=== PATIENT | male | born 1995 | race American Indian/Alaskan Native ===

== ENCOUNTER 2017-06-25 17:02 | Emergency (ER) | payer BC ==
[2017-06-25 17:06] VITALS: BP 106/80; PULSE 69; RESP 16; TEMP 97.5; O2SAT 100
[2017-06-25] MEDS ORDERED: Sodium Chloride 0.9% 1,000 ML IV STA (17:14)
--- NOTE | 2017-06-25 17:14 | ED PDOC ---
Lower Extremity Pain/Injury Time Seen by Provider: 06/25/17 17:06 Chief Complaint (Nursing): Lower Extremity Problem/Injury Chief Complaint (Provider): Left ankle pain History Per: Patient History/Exam Limitations: no limitations Onset/Duration Of Symptoms: Hrs Current Symptoms Are (Timing): Still Present Additional Complaint(s): 21 year old male presents to the emergency department with a complaint of left ankle pain status post fall while skateboarding. Patient did not sustain head injury or LOC. Patient has not been able to walk on affected leg. Patient arrives via ambulance. Dr. Dandy Todd MD ([place], [place]) Past Medical History Reviewed: Historical Data, Nursing Documentation, Vital Signs Vital Signs: Last Vital Signs Temp 97.5 F L 06/25/17 17:04 Pulse 69 06/25/17 17:04 Resp 16 06/25/17 17:04 BP 106/80 06/25/17 17:04 Pulse Ox 100 06/25/17 17:04 - Medical History PMH: No Chronic Diseases - Surgical History Surgical History: No Surg Hx - Family History Family History: States: No Known Family Hx - Living Arrangements Living Arrangements: With Family - Social History Current smoker - smoking cessation education provided: No Alcohol: None Drugs: Cannabis - Home Medications Home Medications: Ambulatory Orders Medication Instructions Recorded Acetaminophen with Codeine 1 tab PO Q6 PRN #20 tab 06/25/17 [Tylenol with Codeine No. 3 300 mg-30 mg] Ibuprofen [Motrin Tab] 800 mg PO Q8 PRN #20 tab 06/25/17 - Allergies Allergies/Adverse Reactions: Allergies Allergy/AdvReac Type Severity Reaction Status Date / Time nut - unspecified Allergy SHORTNESS Verified 06/25/17 17:04 OF BREATH Wells Criteria for PE - Wells Criteria for Pulmonary Embolism Clinical Signs and Symptoms of DVT: No P.E is #1 Diagnosis, or Equally Likely: No Heart Rate >100: No Immobilization at least 3 days;Surgery previous 4 weeks: No Previous, objectively diagnosed PE or DVT: No Hemoptysis: No Malignancy w/treatment within 6 months, or palliative: No Total Score: 0 Review of Systems ROS Statement: Except As Marked, All Systems Reviewed And Found Negative (As per HPI, otherwise negative) Musculoskeletal: Positive for: Other (Left ankle pain s/p fall) Neurological: Positive for: Other (no head injury or LOC) Physical Exam - Reviewed Nursing Documentation Reviewed: Yes Vital Signs Reviewed: Yes - Physical Exam Appears: Positive for: Well, Non-toxic, No Acute Distress Head Exam: Positive for: NORMAL INSPECTION Skin: Positive for: Normal Color. Negative for: Rash Eye Exam: Positive for: Normal appearance Extremity: Positive for: Other (Moderate diffuse swelling noted to the left ankle region suspicious for bony deformity, minimal tenderness to left foot, normal distal pulses, normal cap refill ) Neurologic/Psych: Positive for: Alert, Oriented (x3) - ECG O2 Sat by Pulse Oximetry: 100 (RA) Pulse Ox Interpretation: Normal - Other Rad right tib/fib, ankle and foot x-rays X-Ray: Interpreted by Me, Viewed By Me X-Ray Interpretation: displaced oblique fracture to distal fibula Medical Decision Making Medical Decision Making: Time: 1709 Initial Impression: Left ankle injury s/p skateboarding Initial Plan: Toradol 15 mg IVP Sodium Chloride 1L IV Ankle Left x-ray Left foot x-ray Tib FIb Left x-ray Podiatry resident Dr. Covington at bedside, CT of left lower extremity ordered for further evaluation of injury. was applied by Dr. Covington at bedside. As per Dr. Covington, patient can be discharged after CT completed. Patient was instructed to follow up with Dr. Brizuela in his office tomorrow. Prescriptions for Motrin and Tylenol with Codeine provided. Patient given crutches. Patient was instructed on proper use of crutches. He was advised to keep splint in place at all times and to no get splint wet. Scribe Attestation: Documented by Thi Raman, acting as a scribe for Khushi Owusu PA-C. Provider Scribe Attestation: All medical record entries made by the Scribe were at my direction and personally dictated by me. I have reviewed the chart and agree that the record accurately reflects my personal performance of the history, physical exam, medical decision making, and the department course for this patient. I have also personally directed, reviewed, and agree with the discharge instructions and disposition. Disposition - Clinical Impression Clinical Impression: Fracture of distal fibula - Patient ED Disposition Is Patient to be Admitted: No Counseled Patient/Family Regarding: Studies Performed, Diagnosis, Need For Followup, Rx Given - Disposition Referrals: Fabio Brizuela III, MD [Staff Provider] - Disposition: Routine/Home Disposition Time: 20:41 Condition: STABLE Additional Instructions: Ice and elevate affected area. Do not remove splint or get splint wet. Take prescription meds for pain relief as directed as needed. Do not bear any weight on affected leg. Use crutches when walking at all times. Follow-up tomorrow with Dr. Brizuela in his office. Prescriptions: Acetaminophen with Codeine [Tylenol with Codeine No. 3 300 mg-30 mg] 1 tab PO Q6 PRN #20 tab PRN Reason: Pain, Severe (8-10) Ibuprofen [Motrin Tab] 800 mg PO Q8 PRN #20 tab PRN Reason: Pain, Moderate (4-7) Instructions: Ankle Fracture, Cast Care, How to Use Crutches, Going Up and Down Curbs or Stairs With a Walker or Crutches Forms: [employer] ([place]), [facility] ED School/Work Excuse
--- NOTE | 2017-06-25 21:02 | CT ---
EXAM: CT Left Lower Extremity Without Intravenous Contrast, Ankle CLINICAL HISTORY: 21 years old, male; Injury or trauma; Injury Post fall / skateboarding; Initial encounter; Fracture, traumatic; Closed fracture; Ankle; Left; Not specified; Additional info: Left ankle fibula FX, increased medial clear space TECHNIQUE: Axial computed tomography images of the left ankle without intravenous contrast. All CT scans at this facility use one or more dose reduction techniques, viz.: automated exposure control; ma/kV adjustment per patient size (including targeted exams where dose is matched to indication; i.e. head); or iterative reconstruction technique. Coronal and sagittal reformatted images were created and reviewed. COMPARISON: CR - TIBIA FIBULA LEFT 2017-06-25 17:15 FINDINGS: Bones/joints: Oblique fracture distal fibular diaphysis. Posterior displacement of distal fracture fragment. Comminuted avulsion fracture posterior medial aspect of distal tibia. Small ossicle along distal fibula. Mild widening medial gutter of ankle mortise. No dislocation. Minimal joint effusion. Soft tissues: Swelling/stranding/minimal air about ankle. IMPRESSION: 1. Distal tibial and fibular fractures.
--- NOTE | 2017-06-25 21:58 | CP.PCM.CON ---
History of Present Illness - History of Present Illness History of Present Illness: 21 y/o male with no significant PMHx seen in ED for left ankle pain s/p skateboarding injury earlier this evening. States he fell off a ramp and his ankle twisted, at which time he felt a crack. States he did not attempt to walk afterwards and came straight to the ED. Denies any numbness, tingling or burning at this time. Admits to moderate pain on the outside of the ankle scaled as a 7/10, with additional pain on the inside of his ankle scaled 4/10 on the VAS scale. Denies F/C/N/V/CP/SOB PSH: denies All: peanut Social: denies EtOH or cigarette use; admits to marijuana use Review of Systems - Review of Systems All systems: reviewed and no additional remarkable complaints except (per HPI) Past Patient History - Past Social History Alcohol: None Drugs: Cannabis - PSYCHIATRIC Hx Substance Use: No Meds Home Medications: Home Medication List Medication Instructions Recorded Confirmed Type Acetaminophen with Codeine 1 tab PO Q6 PRN #20 tab 06/25/17 Rx [Tylenol with Codeine No. 3 300 mg-30 mg] Ibuprofen [Motrin Tab] 800 mg PO Q8 PRN #20 tab 06/25/17 Rx Allergies/Adverse Reactions: Allergies Allergy/AdvReac Type Severity Reaction Status Date / Time nut - unspecified Allergy SHORTNESS Verified 06/25/17 17:04 OF BREATH Physical Exam - Constitutional Appears: Well, Non-toxic, No Acute Distress - Extremities Exam Additional comments: Left lower extremity focused exam: Vasc: DP/PT pulses palpable 2/4. Temperature gradient warm to cool from proximal to distal. Localized non-pitting perimalleolar edema, medial > lateral. CFT < 3 sec to all digits Derm: No open lesions, no hematoma formation, no fracture blisters, no erythema , no ecchymosis Neuro: Protective sensation grossly intact Ortho: Moderate tenderness elicited upon active and passive ankle joint ROM, dorsiflexion>plantarflexion. Limited STJ inversion and eversion due to guarding. Pt able to dorsiflex actively at ankle joint, limited due to guarding. Pt able to wiggle toes without difficulty - Neurological Exam Neurological exam: Alert, Oriented x3 - Psychiatric Exam Psychiatric exam: Normal Affect, Normal Mood Results - Vital Signs Recent Vital Signs: Last Vital Signs Temp 97.5 F L 06/25/17 17:04 Pulse 69 06/25/17 17:04 Resp 16 06/25/17 17:04 BP 106/80 06/25/17 17:04 Pulse Ox 100 06/25/17 20:57 Assessment & Plan - Assessment and Plan (Free Text) Assessment: 21 y/o male with displaced left oblique distal fibula fracture and increased medial clear space of left ankle joint secondary to trauma Plan: Pt seen and evaluated in ED Discussed plan with attending Dr. Brizuela X-rays of L ankle reveal distal fibula fracture, increased medial clear space Lower ext CT w/o contrast reveals oblique distal fibula fracture with >3mm gapping noted between fracture fragments, increased medial clear space with comminuted distal tibia avulsion fracture Pt placed in posterior splint to LLE and dispensed crutches - to remain NWB at all times Pt is to follow up with Dr. Brizuela in his office tomorrow Pain control as per ED medical team Thank you for this consult
--- NOTE | 2017-06-26 08:55 | RAD ---
PROCEDURE: Left Ankle Radiographs. HISTORY: trauma COMPARISON: None FINDINGS: BONES: Minimally displaced fracture of the distal fibula. JOINTS: Questionable widening of the medial clear space. Talar dome intact SOFT TISSUES: Lateral malleolar soft tissue swelling. Small ankle joint effusion. OTHER FINDINGS: None. IMPRESSION: Minimally displaced fracture of the distal fibula. Questionable widening of the medial clear space.
--- NOTE | 2017-06-26 08:59 | RAD ---
PROCEDURE: Radiographs of the left tibia and fibula. HISTORY: trauma COMPARISON: None available. TECHNIQUE: Frontal and lateral views obtained. FINDINGS: BONES: Minimally displaced fracture of the distal fibula. JOINT SPACES: Widening of the medial clear space. OTHER FINDINGS: Lateral malleolar soft tissue swelling. IMPRESSION: Minimally displaced fracture of the distal fibula. Widening of the medial clear space is most compatible with deltoid ligament injury.
--- NOTE | 2017-06-26 09:00 | RAD ---
PROCEDURE: Left Foot Radiographs. HISTORY: trauma COMPARISON: None. FINDINGS: BONES: Minimally displaced fracture of the distal fibula. JOINTS: Normal. SOFT TISSUES: Lateral malleolar soft tissue swelling. OTHER FINDINGS: None. IMPRESSION: Minimally displaced fracture of the distal fibula.
== END 2017-06-25 21:12 | disposition home or self-care (01) ==
LOC: H.ER 17:02
DX: S82.832A Other fracture of upper and lower end of left fibula, initial encounter for closed fracture (principal); W19.XXXA Unspecified fall, initial encounter; Y93.51 Activity, roller skating (inline) and skateboarding
CPT/HCPCS: 29240; 73590; 73610; 73630; 73700; 96374; 99284; J1885

== ENCOUNTER 2017-06-29 06:28 | Observation (INO) | payer BC ==
[2017-06-29 06:54] VITALS: RESP 18
--- NOTE | 2017-06-29 07:43 | CP.PCM.HP ---
History of Present Illness - History of Present Illness History of Present Illness: Patient is a 21 y/o male with PMH of asthma, who presents to the [facility] ER with complaints of L leg pain and tightness following a short leg splint placement on 06/25/17. The patient suffered a left ankle distal fibula fracture with syndesmosis disruption after a skateboarding injury 4 days ago. The patient was placed in a short leg splint in the ER and was not admitted, but discharged NWB with crutches. Over the next few days, the patient experienced progressively worsening, severe left leg pain. He feels as though the splint is very tight. Currently the pain is constant, dull and tight in quality. Patient rates the pain a 8-9/10 on the pain scale. The pain is worsened with activity and is relieved when at rest. It is associated with swelling and is located diffusely about the left ankle but predominantly at the lateral aspect. He denies any radiation of pain, numbness or tingling to the LLE. He currently denies CP/SOB/N/V/D/fever/FLYNN/dysuria/melena. Present on Admission - Present on Admission Any Indicators Present on Admission: No Review of Systems - Review of Systems All systems: reviewed and no additional remarkable complaints except Review of Systems: as per HPI Past Patient History - Past Medical History & Family History Past Medical History?: Yes Past Family History: Reviewed and not pertinent - Past Social History Smoking Status: Never Smoked Alcohol: None Drugs: Cannabis - CARDIAC Hx Cardiac Disorders: No - PULMONARY Hx Asthma: Yes - NEUROLOGICAL Hx Neurological Disorder: No - HEENT Hx HEENT Problems: No - RENAL Hx Chronic Kidney Disease: No - ENDOCRINE/METABOLIC Hx Endocrine Disorders: No - HEMATOLOGICAL/ONCOLOGICAL Hx Blood Disorders: No - INTEGUMENTARY Hx Dermatological Problems: No - GASTROINTESTINAL Hx Gastrointestinal Disorders: No - GENITOURINARY/GYNECOLOGICAL Hx Genitourinary Disorders: No - PSYCHIATRIC Hx Substance Use: Yes - SURGICAL HISTORY Hx Surgeries: No - ANESTHESIA Hx Anesthesia: No Meds Home Medications: Home Medication List Medication Instructions Recorded Confirmed Type oxyCODONE/Acetaminophen [Percocet 1 - 2 ea PO Q6 #30 tab 06/29/17 Rx 5/325 mg Tab] Allergies/Adverse Reactions: Allergies Allergy/AdvReac Type Severity Reaction Status Date / Time nut - unspecified Allergy SHORTNESS Verified 06/25/17 17:04 OF BREATH Physical Exam - Constitutional Appears: No Acute Distress - Head Exam Head Exam: ATRAUMATIC, NORMOCEPHALIC - Eye Exam Eye Exam: EOMI, Normal appearance, PERRL - ENT Exam ENT Exam: Mucous Membranes Moist - Respiratory Exam Respiratory Exam: Clear to Auscultation Bilateral, NORMAL BREATHING PATTERN - Cardiovascular Exam Cardiovascular Exam: REGULAR RHYTHM - GI/Abdominal Exam GI & Abdominal Exam: Normal Bowel Sounds, Soft - Extremities Exam Additional comments: LLE: short leg splint intact, + swelling sensation intact SP/DP/TN motor intact EHL/FHL pedal pulses intact comp soft and NT - Neurological Exam Neurological exam: Alert, Oriented x3 - Psychiatric Exam Psychiatric exam: Normal Affect, Normal Mood - Skin Skin Exam: Normal Color, Warm Results - Vital Signs Recent Vital Signs: Last Vital Signs Temp 97.5 F L 06/29/17 06:50 Pulse 73 06/29/17 06:50 Resp 18 06/29/17 06:50 BP 118/78 06/29/17 06:50 Pulse Ox 100 06/29/17 06:50 - Labs Result Diagrams: 06/29/17 08:11 06/29/17 08:11 Assessment & Plan (1) Fracture of distal fibula Assessment and Plan: Patient is a 21 y/o male with a L ankle distal fibula fx with syndesmosis disruption -OR today for L ankle ORIF -Risks/benefits of above procedure explained to patient and his mother in detail. They express their understanding and would like to proceed with procedure -NPO -above d/w Dr. Brizuela in agreement Status: Acute
--- NOTE | 2017-06-29 07:44 | ED PDOC ---
Lower Extremity Pain/Injury Time Seen by Provider: 06/29/17 07:04 Chief Complaint (Nursing): Lower Extremity Problem/Injury Chief Complaint (Provider): Left foot pain History Per: Patient History/Exam Limitations: no limitations Onset/Duration Of Symptoms: Days (x5) Current Symptoms Are (Timing): Still Present Additional Complaint(s): Freddie Wilolughby is a 21 year old male, with no significant past medical history, who presents to the emergency department complaining of mild intermittent numbness to left foot onset for x4 days. Patient reports he broke his ankle on and followed up with Dr. Brizuela on Thursday. Patient states the cast feels too tight with intermittent mild numbness to anterior foot. Patient was advised to come to the ED. He denies any other medical complaints. PMD: None provided. Past Medical History Reviewed: Historical Data, Nursing Documentation, Vital Signs Vital Signs: Last Vital Signs Temp 97.5 F L 06/29/17 06:50 Pulse 73 06/29/17 06:50 Resp 18 06/29/17 06:50 BP 118/78 06/29/17 06:50 Pulse Ox 100 06/29/17 06:50 - Medical History PMH: Asthma - Surgical History Surgical History: No Surg Hx - Family History Family History: States: Unknown Family Hx - Social History Current smoker - smoking cessation education provided: No Alcohol: None Drugs: Cannabis - Home Medications Home Medications: Ambulatory Orders Medication Instructions Recorded Acetaminophen with Codeine 1 tab PO Q6 PRN #20 tab 06/25/17 [Tylenol with Codeine No. 3 300 mg-30 mg] Ibuprofen [Motrin Tab] 800 mg PO Q8 PRN #20 tab 06/25/17 oxyCODONE/Acetaminophen [Percocet 1 - 2 ea PO Q6 #30 tab 06/29/17 5/325 mg Tab] - Allergies Allergies/Adverse Reactions: Allergies Allergy/AdvReac Type Severity Reaction Status Date / Time nut - unspecified Allergy SHORTNESS Verified 06/25/17 17:04 OF BREATH Review of Systems ROS Statement: Except As Marked, All Systems Reviewed And Found Negative Neurological: Positive for: Numbness (left foot mild) Physical Exam - Reviewed Nursing Documentation Reviewed: Yes Vital Signs Reviewed: Yes - Physical Exam Appears: Positive for: Non-toxic, No Acute Distress Head Exam: Positive for: ATRAUMATIC, NORMOCEPHALIC Skin: Positive for: Normal Color, Warm, Dry Eye Exam: Positive for: Normal appearance Respiratory: Negative for: Respiratory Distress Extremity: Positive for: Normal ROM (lower extremities), Capillary Refill (<3sec ), Other (Left lower extremity in cast. Able to move all digits, sensation intact.). Negative for: Deformity, Swelling Neurologic/Psych: Positive for: Alert, Oriented. Negative for: Motor/Sensory Deficits - Laboratory Results Result Diagrams: 06/29/17 08:11 06/29/17 08:11 - ECG O2 Sat by Pulse Oximetry: 100 (RA) Pulse Ox Interpretation: Normal Medical Decision Making Medical Decision Making: Initial Impression: Cast care s/p broken ankle Initial Plan: --Type and screen --EKG --CMP --CBC w/ differential --PTT --PT --Chest portable [RAD] --Reevaluation -Ortho PA evaluating patient. Scribe Attestation: Documented by Ulises Gonzalez, acting as a scribe for Kelsi Interiano MD Provider Scribe Attestation: All medical record entries made by the Scribe were at my direction and personally dictated by me. I have reviewed the chart and agree that the record accurately reflects my personal performance of the history, physical exam, medical decision making, and the department course for this patient. I have also personally directed, reviewed, and agree with the discharge instructions and disposition. Disposition - Clinical Impression Clinical Impression: Ankle fracture - Patient ED Disposition Is Patient to be Admitted: Yes - Disposition Disposition Time: 09:03 Condition: STABLE - Pt Status Changed To: Hospital Disposition Of: Observation - POA Present On Arrival: Falls Or Trauma
[2017-06-29 08:17] LABS: BASO % 0.6 % (0.0-2.0); EOS # 0.1 K/uL (0.0-0.7); EOS % 1.7 % (0.0-4.0); HEMOGLOBIN 15.2 g/dL (12.0-18.0); LYMPH # 1.6 K/uL (1.0-4.3); LYMPH % 27.2 % (20.0-40.0); MEAN CELL VOLUME 88.4 fl (80.0-94.0); MEAN CORPUSCULAR HEMOGLOBIN 30.5 pg (27.0-31.0); MEAN CORPUSCULAR HGB CONC 34.5 g/dL (33.0-37.0); MEAN PLATELET VOLUME 9.1 fl (7.2-11.7); MONO # 0.4 K/uL (0.0-0.8); MONO % 7.3 % (0.0-10.0); NEUT # 3.8 K/uL (1.8-7.0); NEUT % 63.2 % (50.0-75.0); NRBC % 0.1 % (0.0-0.0); RBC 4.99 Mil/uL (4.40-5.90); RED CELL DISTRIBUTION WIDTH 12.6 % (11.5-14.5); WHITE BLOOD COUNT 6.1 K/uL (4.8-10.8)
--- NOTE | 2017-06-29 08:20 | RAD ---
HISTORY: Medical clearance COMPARISON: No prior. FINDINGS: LUNGS: No active pulmonary disease. PLEURA: No significant pleural effusion identified, no pneumothorax apparent. CARDIOVASCULAR: Normal. OSSEOUS STRUCTURES: No significant abnormalities. VISUALIZED UPPER ABDOMEN: Normal. OTHER FINDINGS: None. IMPRESSION: No acute cardiopulmonary disease appreciated.
[2017-06-29 08:24] LABS: INR 1.1 (0.9-1.2); PROTHROMBIN TIME 11.9 Seconds (9.8-13.1)
[2017-06-29 08:32] LABS: ALB/GLOB RATIO 1.2 (1.0-2.1); ALT/SGPT 35 U/L (21-72); AST/SGOT 30 U/L (17-59); BLOOD UREA NITROGEN 16 mg/dl (9-20); CALCIUM 9.7 mg/dL (8.4-10.2); GFR AFRICAN-AMERICAN > 60; GFR NON-AFRICAN AMERICAN > 60
[2017-06-29] MEDS ORDERED: Dextrose 50% SYRINGE Inj (50 ml) IVP STA (08:49)
[2017-06-29 09:13] LABS: URINE BILIRUBIN NEGATIVE (NEGATIVE); URINE BLOOD NEGATIVE (NEGATIVE); URINE CLARITY CLEAR (Clear); URINE COLOR YELLOW (YELLOW); URINE GLUCOSE (UA) NEG (Normal); URINE LEUKOCYTE ESTERASE NEG Leu/uL (Negative); URINE PROTEIN NEGATIVE (NEGATIVE); URINE UROBILINOGEN 0.2-1.0 mg/dL (0.2-1.0)
[2017-06-29] MEDS ORDERED: Succinylcholine 200 mg/10 ml Inj IV ONE (09:48)
[2017-06-29] MEDS ORDERED: Propofol 10 mg/ml Inj (20 ML) ONE (09:48)
[2017-06-29] MEDS ORDERED: Midazolam 2 MG/2 ML VIAL ONE (09:48)
[2017-06-29] MEDS ORDERED: Lidocaine 4% (Laryng-O-Jet) Kit MM ONE (09:49)
[2017-06-29] MEDS ORDERED: Neostigmine 1:1000 (1 mg/ml) Inj ONE (09:49)
[2017-06-29] MEDS ORDERED: Vecuronium 10 mg Inj ONE (09:50)
[2017-06-29] MEDS ORDERED: Bacitracin Ointment 30 GM TUBE ONE (10:23)
[2017-06-29] MEDS ORDERED: Thrombin Topical 5,000 Int Units Spray Kit ONE (10:23)
[2017-06-29] MEDS ORDERED: Absorbable Gelatin Sponge Size 100 ONE (10:23)
[2017-06-29] MEDS ORDERED: Ropivacaine 0.5% 30ML IV ONE (10:54)
[2017-06-29] MEDS ORDERED: Lactated Ringer's 1,000 ML IV ONE ×2 (11:06→15:00)
[2017-06-29] MEDS: Trimethobenzamide 200 mg/2 mL Inj IM ONE ×2 (13:10→15:10)
[2017-06-29] MEDS ORDERED: Bupivacaine HCl 0.25% PF (30 ml) Inj ONE (13:27)
--- NOTE | 2017-06-29 13:33 | PCM.ANESB2 ---
Popliteal Nerve Block - Popliteal Nerve Block Date of Procedure: 06/29/17 Anesthesiologist: Dr. Carranza Pre-Procedure Diagnosis: Left fibular fracture Post-Procedure Diagnosis: Left fibular fracture Procedure Performed: Popliteal Nerve Block Left - Procedure Popliteal Nerve Block: This procedure was explained to the patient that it is for post-operative pain management. Consent was obtained after a thorough discussion with the patient regarding the benefits and possible complications of local anesthetic block of the sciatic nerve at the popliteal level. The patient was brought to the operating room and standard monitors are applied. Time-out was held with the circulating nurse to confirm the correct surgery and the appropriate block. After applying oxygen by mask and administering general anesthesia, patient's operative leg was gently raised and supported and the groove in between the biceps femoris and vastus lateralis muscles was carefully palpated. The skin approximately 8cm above the popliteal crease was then marked. The ultrasound transducer was then applied to the posterior thigh approximately 8cm above the popliteal crease in the transverse plane and the sciatic nerve before its division was visualized lateral to the popliteal artery and in between the bicep femoris and semimembranosus/semitendinosus muscles. After identification, the lateral portion of the thigh was prepped with Chloraprep solution. At this point, a # 20 gauge Stimuplex insulated 4 inch needle was inserted into pre-marked area and advanced in a perpendicular direction. The needle was inserted above the ultrasound transducer in-plane towards the sciatic nerve in a [id number] direction. Needle advancement was performed carefully under direct ultrasound visualization. Nerve stimulator was used and dorsiflexion of the left foot was elicited at a current of 0.3 MA. After repeated negative aspiration, 5cc of 0.5 % ropivacaine was injected and this was flowed with 25cc of 0.5 % ropivacaine. Under ultrasound guidance the local anesthetics were observed surrounding sciatic nerve . The needle was removed intact and sterile dressing was applied. The patient tolerated the popliteal nerve block well with stable vital signs and was subsequently prepared for the surgery.
--- NOTE | 2017-06-29 13:38 | PCM.ANESB7 ---
Adductor Canal Block - Adductor Canal Block Date of Procedure: 06/29/17 Anesthiologist: Dr. Carranza Pre-Procedure Diagnosis: S/P ORIF lefet fibular fracture Post-Procedure Diagnosis: S/P ORIF lefet fibular fracture Procedure Performed: Adductor Canal Block Left - Procedure Adductor Canal Block: The procedure was explained to the patient that it is for the post-operative pain management. Consent was obtained after a thorough discussion with the patient regarding the benefits and possible complications of local anesthetic adductor canal block of the femoral nerve. Standard monitors, as defined by the ASA, were applied to the patient. Time-out was held with the circulating nurse to confirm the appropriate block. After the surgery while still under general anesthesia, the patient in supine position with and the operative leg was flexed slightly at the knee and externally rotated as needed, and was kept anatomically stable. The mid-thigh of the left lower extremity was exposed. The ultrasound transducer was then applied transversely along the medial aspect , about midway down the thigh and the femoral artery and vein were identified in appropriate relation with the sartorius muscle. At this time, the femoral nerve was visualized lateral to the femoral artery within the canal. After thorough identification, this area area was prepped with Chloroprep solution. At this point, a #20 gauge Stimuplex 4-inch needle was inserted in-plane in a [id number] orientation, and advanced toward the femoral nerve. Advancement was performed carefully under direct ultrasound visualization. After negative aspiration, 5cc of 0.25%bupivacaine with 1:200,000 epinephrine was injected and this was followed with 10cc of 0.25%bupivacaine with 1:200,000 epinephrine. Under ultrasound guidance the local anesthetics were observed spreading around the saphenous nerve. The needle was removed intact and sterile dressing was applied. The patient had stable vital signs, was conscious and in no apparent distress. The patient tolerated the femoral nerve block well with stable vital signs and was awaken from anesthesia. Then transported to PACU.
[2017-06-29] MEDS ORDERED: Oxycodone/Acetaminophen 5/325 mg Tab PO PRN (13:42)
[2017-06-29] MEDS ORDERED: HYDROmorphone 0.5 mg/0.5 ml ISec IVP PRN (13:43)
[2017-06-29] MEDS ORDERED: Lactated Ringer's 1,000 ML IV SCH ×2 (13:45)
--- NOTE | 2017-06-29 15:04 | PCM.SURG1 ---
Surgeon's Initial Post Op Note - Surgeon's Notes Surgeon: Fabio Brizuela MD [employer] Farmworker: 1st assist Stephanie PGY-1, 2nd assist Marce PELAYO Type of Anesthesia: General Endo Anesthesia Administered By: Tere MARIE Pre-Operative Diagnosis: 1) Left ankle fracture. 2) Syndesmotic ligament rupture Operative Findings: see complete op note Post-Operative Diagnosis: 1) Left displaced comminuted distal fibula fracture. 2) Syndesmotic ligament rupture. 3) Tibial plafond fx Operation Performed: 1) Left distal fibula fracture open reduction internal fixation. 2) Repair of syndesmotic ligament rupture. 3) Closed reduction of avulsed distal tibia fracture. 4) Allograft bone graft. 5) Application of short leg posterior splint. 6) Positioning of fluoroscopy and interperetation of radiological imaging Specimen/Specimens Removed: none Estimated Blood Loss: EBL {In ML}: 5 Blood Products Given: N/A Drains Used: No Drains Post-Op Condition: Good Date of Surgery/Procedure: 06/29/17 Time of Surgery/Procedure: 11:06 (11:57 incision time)
--- NOTE | 2017-06-29 15:50 | RAD ---
PROCEDURE: Fluoroscopy over 1 hour HISTORY: LEFT TIB/FIB COMPARISON: None TECHNIQUE: Standard protocol for this study/examination. FINDINGS: Total fluoroscopic time (continuous mode) utilized during the procedure 12.2 (seconds). IMPRESSION: Submitted images from the current procedure: 4.0
--- NOTE | 2017-06-29 16:12 | RAD ---
PROCEDURE: Radiographs of the left tibia and fibula. HISTORY: s/p orif left tib/fib COMPARISON: None available. TECHNIQUE: Frontal and lateral views obtained. FINDINGS: BONES: There is no bone destruction. Bone alignment is normal. Status post open reduction and internal fixation of distal fibular fracture. There is a screw in the medial malleolus. No evidence of hardware complications. Near normal bone alignment. JOINT SPACES: Unremarkable. OTHER FINDINGS: There are lateral skin sudeep. IMPRESSION: Status post open reduction and internal fixation of medial malleolar and distal fibular fractures. No acute complications.
--- NOTE | 2017-06-29 16:16 | RAD ---
PROCEDURE: Left Ankle Radiographs. HISTORY: s/p L ankle ORIF COMPARISON: None FINDINGS: BONES: Bone alignment and mineralization are normal. Status post open reduction and internal fixation of distal fibular fracture. There is near normal bone alignment. JOINTS: Normal. No osteoarthritis. Ankle mortise maintained. Talar dome intact SOFT TISSUES: Normal. OTHER FINDINGS: There is a there is linear metallic density in the medial soft tissues overlying the medial malleolus. IMPRESSION: Status post open reduction and internal fixation of distal fibular fracture. Linear metallic density in the medial soft tissues overlying the medial malleolus.
[2017-06-29 17:31] VITALS: BP 120/57; PULSE 58; TEMP 98.5; O2SAT 100
--- NOTE | 2017-06-29 20:29 | CARD ---
APPROVED REPORT EKG Measurement Heart [id number] <Conclusion> Sinus bradycardia Otherwise normal ECG
--- NOTE | 2017-07-01 13:00 | OP ---
PROCEDURE DATE: 06/29/2017 PREOPERATIVE DIAGNOSES: 1. Displaced rotated left distal fibula fracture. 2. Syndesmotic ligament rupture. 3. Fracture posterior tibial plafond. POSTOPERATIVE DIAGNOSES: 1. Displaced rotated left distal fibula fracture. 2. Syndesmotic ligament rupture. 3. Fracture posterior tibial plafond. OPERATIVE FINDINGS: 1. Displaced rotated left comminuted distal fibula fracture. 2. Syndesmotic ligament rupture. 3. Closed reduction distal tibia fracture. 4. Autograft, allograft and bone graft. 5. Application of posterior splint. 6. Positioning of fluoroscope interpretation of video images. SURGEON Fabio Brizuela MD INFORMATION SYSTEMS AUDITOR , PGY-1, Podiatry. SECOND EP TECH Marce Larkin, certified registered nursing nursing home assistant administrator. TYPE OF ANESTHESIA: General tracheal anesthesia. COMPLICATIONS: No complications. DRAINS: No drains. SPECIMENS: No specimens removed. ESTIMATED BLOOD LOSS: 5 mL. BLOOD PRODUCTS: No blood products given. POSTOPERATIVE CONDITION: Good. DATE OF SURGERY: 06/29/2017 OPERATIVE INDICATION: Freddie Willoughby is a 21-year-old gentleman who presents to [facility] through the ER with complaints referable to an ankle fracture that the patient had sustained 06/25/2017. The patient was seen in the evening of 06/25/2017, was splinted and discharged. The patient presents in followup to the emergency with increasing pain, tight splint. The patient is evaluated by me personally in the emergency room on 06/29/2017, early a.m. and the patient was seen by the PA as well. The patient can no longer withstand the discomfort. The case was reviewed and the x-rays were reviewed. The patient was admitted as an emergency for open reduction and internal fixation of the left ankle fracture and evaluation of possible complications from the poorly applied splint. OPERATIVE PROCEDURE: The patient was admitted, stabilized medically and taken to surgery. Pros, cons, risks and benefits of open reduction and internal fixation, syndesmotic ligament repair, a closed reduction of the tibial plafond fracture and splint application were discussed at length with the patient and his mother, who is in attendance in the emergency room. The possibility of mechanical failure, infection, thromboembolic disease, and ankle stiffness is discussed. No promises or guarantees were made. The concept of aggressive physical therapy was discussed at this point as well. The possibility of mechanical failure, infection, thromboembolic disease, secondary or tertiary surgery was discussed. DESCRIPTION OF THE OPERATIVE PROCEDURE: After having obtained informed consent in the above fashion, after having identified side, site and procedure and a critical pause/time-out after the satisfactory induction of the anesthetic, the patient identified as Freddie Wilolughby in the supine position with all bony prominences well padded. The left lower extremity was prepped and free draped in the usual fashion for lower extremity surgery. Again after having obtained informed consent, after having identified the side, site and procedure and a critical pause/time-out, after the satisfactory induction of the anesthetic, the patient identified as Freddie Willoughby in the supine position with all bony prominences well padded. The left lower extremity was prepped and free draped in the usual fashion for lower extremity surgery. Under the surgeon's direction, the fluoroscope was positioned, video images were generated and therapeutic decisions were made therefrom. After sterilely prepping and draping and after positioning of the fluoroscope correctly and after sterilely prepping and draping, the lower extremity was exsanguinated using a 6-inch Esmarch bandage, tourniquet which had been applied was inflated to 350 mmHg. The plafond was marked a point approximately 1.5 cm above the tibial plafond was marked for the use of the TightRope technique for repair of the syndesmotic ligament rupture. On review of x-rays and CT scan examination, it is clear that the syndesmotic ligament was ruptured. An incision was described laterally from the distal aspect of the fibula superficially proximally. The skin incision was carried down through the skin and subcutaneous tissue. Hemostasis controlled with electrocautery. Stay sutures were placed so as to avoid compromise of the skin with retractors. Great care was taken to avoid injury to the sural nerve, the fracture site was identified, the distal fibula found to be rotated and displaced significantly. There was a long spiral oblique component to the fracture. The Arthrex, the distal fibula plate was applied, it was affixed to the lateral aspect of the fibula. This plate was chosen because the TightRope can be incorporated into the plate. Positioning of the plate was verified and each sequential drill hole was drilled, sounded and the appropriate size screw was placed. It should be noted that prior to application of the plate, an interfragmentary lag screw was accomplished using the 3.5 drill bit followed by 2.5, followed by sounding with the depth gauge and the appropriate size screw was placed. A #2 FiberWire was also placed around the spike to further affix the fracture. Verification of position was offered on image intensification views. Position was found to be acceptable. At this point in time, each sequential drill hole was drilled, sounded and the appropriate size screws were placed in both the locking mode and in the non-locking mode. Verification of position was offered on AP and lateral image intensification views. At this point in time, the posterior malleolar fragment of the tibia was identified and it was reduced with compression and found to be in acceptable position. This having been accomplished, drilling was accomplished from the plate 1.5 cm above the plafond roughly, using the drill bit exiting the medial aspect of the tibia. Great care was taken to control depth to avoid neurocirculatory compromise. The TightRope was fixed and brought after the drill hole was cleaned with the red pipe type flexible instrument. The needle was brought through, the button was manipulated on the medial aspect of the tibia and verification and the position of the button was accomplished on image intensification views. At this point in time taking great care to make sure that the ankle was in dorsiflexion and on plantar flexion, the syndesmosis was repaired with compression by cinching the lateral aspect of the TightRope device. The position was found to be excellent. The excess suture was removed both medially and laterally. The wound was thoroughly irrigated at this point in time. Autograft and allograft, bone graft was accomplished to the fibula 0.5 DBX. The wound having been thoroughly irrigated, closures in layers with interrupted Vicryl and sudeep laterally and nylon medially. Dru Butts compression dressing and posterior splint was applied. Verification of position was offered on AP and lateral image intensification views and confirmed in recovery. The patient was stable in recovery and was transferred from the operating table to the stretcher having tolerated the procedure well. It should be noted that is the resident on this case and the second title assistant is Marce Larkin. The operative goal could not have been accomplished without the assistance of these professionals. Fabio Brizuela MD
== END 2017-06-29 18:30 | disposition home or self-care (01) ==
LOC: H.ER 06:28 → H.ERHOLD 09:03
PROVIDERS: ADMIT Orthopaedic Surgery; ATTEND Orthopaedic Surgery
DX: S82.452A Displaced comminuted fracture of shaft of left fibula, initial encounter for closed fracture (principal); V00.138A Other skateboard accident, initial encounter; Y93.51 Activity, roller skating (inline) and skateboarding; Y92.9 Unspecified place or not applicable; S93.402A Sprain of unspecified ligament of left ankle, initial encounter; S93.432A Sprain of tibiofibular ligament of left ankle, initial encounter; J45.909 Unspecified asthma, uncomplicated; S82.292A Other fracture of shaft of left tibia, initial encounter for closed fracture
CPT/HCPCS: 27792; 27825; 27829; 71045; 73590; 73610; 76001; 80053; 81003; 82948; 85025; 85610; 85730; 86850; 86900; 93005; 96374; 97161; 99283; C1713; G0378; G8978; G8979; G8980; J0330; J0690; J2001; J2250; J2405; J2704; J2765; J3010; J3250; J7030; J7120